=== PATIENT | male | born 1995 | race Caucasian/White ===

== ENCOUNTER 2018-08-16 02:52 | Emergency (ER) | payer OTHER ==
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
[2018-08-16] MEDS ORDERED: CIPROFLOXACIN 500 MG TAB PO ONE (05:10)
[2018-08-16] MEDS ORDERED: SULFAMETHOX/TMP 800/160 MG 1 TAB PO ONE (05:25)
[2018-08-16] MEDS ORDERED: SULFAMET/TMP DS PREPACK#2 BTL TAKEHOME ONE (05:25)
[2018-08-16 07:00] VITALS: BP 122/76
== END 2018-08-16 07:00 | disposition home or self-care (01) ==
DX: S01.81XA Laceration without foreign body of other part of head, initial encounter (principal); S01.312A Laceration without foreign body of left ear, initial encounter; F10.920 Alcohol use, unspecified with intoxication, uncomplicated; Y09 Assault by unspecified means